=== PATIENT | female | born 1940 | race Caucasian/White ===

== ENCOUNTER 2016-10-08 09:36 | Emergency (ER) | payer MEDICARE ==
[2016-10-08 09:57] LABS: ADD MANUAL DIFF? NO
[2016-10-08 09:59] VITALS: BMI 23.4
--- NOTE | 2016-10-08 09:59 | ED PDOC ---
Arrival/HPI - General Chief Complaint: Syncope Time Seen by Provider: 10/08/16 09:57 Historian: Patient - History of Present Illness Narrative History of Present Illness (Text): 10/08/16 09:49 A 76 year old female, whose past medical history includes CAD with stents, diabetes, hypertension, Hyperlipedmia, and TIA, who is brought down to the emergency department for evaluation of a near syncopal episodes. Patient reports this morning upon arriving to [facility] for work she felt fine, but then when getting onto the elevator to go to a [employer] which was called, she began to fell, lightheaded, dizzy and diaphoretic. Patient notes an tech was behind her who helped her sit down. Patient mentions having intermittent upper back pain for some time now. Currently the patient states her mouth is really dry but she denies any chest pain, shortness of breath or any other complaints at this time. She reports that she did not sleep at all last night. States she did eat this morning. Currently states she feels better. Steam Station Supervisor: Dr. Chavez 10/08/16 14:46 Time/Duration: Prior to Arrival Symptom Onset: Sudden Symptom Course: Other Quality: Other Activities at Onset: Rest Context: Work Past Medical History - Provider Review Nursing Documentation Reviewed: Yes - Infectious Disease Hx of Infectious Diseases: None - Tetanus Immunization Tetanus Immunization: Unknown - Cardiac Hx Hypertension: Yes - Pulmonary Hx Respiratory Disorders: (+ppd yrs ago took inh) - Neurological Hx Transient Ischemic Attacks (TIA): Yes - Endocrine/Metabolic Hx Diabetes Mellitus Type 1: Yes - Hematological/Oncological Hx Blood Transfusions: No Hx Blood Transfusion Reaction: No - Musculoskeletal/Rheumatological Hx Musculoskeletal Disorders: No - Gastrointestinal Hx Gastrointestinal Disorders: Yes (chronic constipation) - Genitourinary/Gynecological Hx Genitourinary Disorders: (mammo 3 yrs ago) - Psychiatric Hx Substance Use: No - Surgical History Hx Cardiac Catheterization: Yes Hx Coronary Stent: Yes Hx Tubal Ligation: Yes - Anesthesia Hx Anesthesia Reactions: No Hx Malignant Hyperthermia: No - Suicidal Assessment Feels Threatened In Home Enviroment: No Family/Social History - Physician Review Nursing Documentation Reviewed: Yes Family/Social History: Unknown Family HX Smoking Status: Never Smoked Hx Alcohol Use: No Hx Substance Use: No Hx Substance Use Treatment: No Allergies/Home Meds Allergies/Adverse Reactions: Allergies tetracycline Allergy (Verified 10/08/16 09:46) RASH Home Medications: Home Meds Medication Instructions Recorded Confirmed Aspirin [Ecotrin] 81 mg PO DAILY 03/07/13 10/08/16 Metoprolol Tartrate 12.5 mg PO BID 03/07/13 10/08/16 Polyethylene Glycol 3350 [Miralax] 17 gm PO DAILY 03/04/14 10/08/16 Ticagrelor [Brilinta] 90 mg PO BID 04/01/14 10/08/16 Atorvastatin [Lipitor] 20 mg PO DAILY 09/19/14 10/08/16 Lisinopril [Lisinopril] 2.5 mg PO DAILY 09/19/14 10/08/16 Ranolazine [Ranexa] 90 mg PO BID 10/08/16 10/08/16 Review of Systems - Review of Systems Constitutional: Fatigue. absent: Fevers Eyes: absent: Vision Changes ENT: absent: Rhinorrhea Respiratory: absent: SOB, Wheezing Cardiovascular: absent: Chest Pain, Calf Pain, GEORGE Gastrointestinal: absent: Abdominal Pain, Nausea, Vomiting Genitourinary Female: absent: Dysuria Musculoskeletal: Back Pain (intermittent upper back pain) Skin: absent: Rash Neurological: Dizziness, Other (lightheaded). absent: Headache Endocrine: Diaphoresis Psychiatric: absent: Depression Physical Exam - Physical Exam Narrative Physical Exam (Text): Head: Atraumatic. Normocephalic. Eyes: PERRL. EOMI. Conjunctivae are not pale. ENT: Mucous membranes are moist and intact. Oropharynx is clear and symmetric. Neck: Supple. Full ROM. No JVD. No lymphadenopathy. Cardiovascular: Regular rate. Regular rhythm. Systolic murmur. Pulmonary/Chest: No evidence of respiratory distress. Clear to auscultation bilaterally. No wheezing, rales or rhonchi. Abdominal: Soft and non-distended. There is no tenderness. No rebound, guarding, or rigidity. No organomegaly. Good bowel sounds. Back: No CVA tenderness. Extremities: No edema. No cyanosis. No clubbing. Full range of motion in all extremities. No calf tenderness. Skin: Skin is warm and dry. No petechiae. No purpura. Neurological: Alert, awake, and oriented to person, place, time, and situation. Normal speech. Motor and sensory intact, no meningeal signs. No facial droop. Psychiatric: Good eye contact. Normal interaction, affect, and behavior. Vital Signs Reviewed: Yes Vital Signs Temp Pulse Resp BP Pulse Ox 10/08/16 11:12 62 16 103/54 L 99 10/08/16 09:36 97.5 F L 66 20 119/65 100 Temperature: Afebrile Blood Pressure: Normal Pulse: Regular Respiratory Rate: Normal Appearance: Positive for: Well-Appearing, Non-Toxic, Comfortable Pain Distress: None Mental Status: Positive for: Alert and Oriented X 3 Finger Stick Blood Glucose: 129 Medical Decision Making ED Course and Treatment: 10/08/16 09:49 Impression: A 76 year old female with a near syncopal episode. Differential Diagnosis include but are not limited to: Near syncope vs. electrolyte imbalance vs. ACS Plan: Will obtain EKG, Chest X-ray and lab work and monitor patient with serial exams. Progress Notes: Patient with significant past cardiac history, currently denies chest pain or sob however. On examination she is noted to have no focal neuro deficits. Denies loss of consiousness. With serial exams in ED, not tachycardic or hypotensive. Consulted with Dr. Chavez, her machinist bench, who evaluated patient in the ED. On examination the patient with serial exams remains comfortable with no neurological deficits, no complaints. Two sets of troponin unremarkable. She has follow-up with machinist bench in AM for stress test. She does not wish to be admitted to the hospital for observation, this was discussed with her. She is cv stable and comfortable on re-exam. 10/08/16 10:20 Chest X-ray: Creator : Olaf Velasquez MD COMPARISON: 03/03/2014 FINDINGS: LUNGS: Examination limited due to severely oblique positioning. No infiltrate. PLEURA: No significant pleural effusion identified, no pneumothorax apparent. CARDIOVASCULAR: Normal. OSSEOUS STRUCTURES: No significant abnormalities. VISUALIZED UPPER ABDOMEN: Normal. OTHER FINDINGS: None. IMPRESSION: No active disease. Patient ambulates without dizziness or symptoms in ED on re-evaluation. - Lab Interpretations Lab Results: 10/08/16 09:40 10/08/16 09:40 Lab Results 10/08/16 14:00: Troponin I < 0.01 10/08/16 09:40: WBC 5.9 D, RBC 3.70, Hgb 11.0 L, Hct 33.1 L, MCV 89.5, MCH 29.7 , MCHC 33.2, RDW 14.3, Plt Count 237, MPV 9.5, Gran % 53.6, Lymph % (Auto) 33.4 , [place] % (Auto) 7.1 H, Eos % (Auto) 5.6 H, Baso % (Auto) 0.3, Gran # 3.15, Lymph # 2.0, [place] # 0.4, Eos # 0.3, Baso # 0.02, PT 10.4, INR 0.96, APTT 24.4, Sodium 136, Potassium 3.9, Chloride 103, Carbon Dioxide 24, Anion Gap 13, BUN 14 , Creatinine 0.9, Est GFR ( Amer) > 60, Est GFR (Non-Af Amer) > 60, Random Glucose 102, Calcium 8.8, Total Bilirubin 0.5, AST 20, ALT 18, Alkaline Phosphatase 54, Lactate Dehydrogenase 290 L, Total Creatine Kinase 43, Troponin I < 0.01, Total Protein 6.5, Albumin 3.4, Globulin 3.1, Albumin/Globulin Ratio 1.1 I have reviewed the lab results: Yes - RAD Interpretation Radiology Orders: 10/08/16 09:46 CHEST PORTABLE [RAD] Stat - Medication Orders Current Medication Orders: Sodium Chloride (Sodium Chloride 0.9%) 1,000 mls @ 100 mls/hr IV .Q10H STANISLAW Last Admin: 10/08/16 10:30 Dose: 100 MLS/HR eMAR Start Stop Document 10/08/16 10:30 SRE (Rec: 10/08/16 10:30 SRE [id number]) Intravenous Solution Start Date 10/08/16 Start Time 10:20 - Scribe Statement The provider has reviewed the documentation as recorded by the Jalilibgerman Gupta Provider Scribe Attestation: All medical record entries made by the Jalilibgerman were at my direction and personally dictated by me. I have reviewed the chart and agree that the record accurately reflects my personal performance of the history, physical exam, medical decision making, and the department course for this patient. I have also personally directed, reviewed, and agree with the discharge instructions and disposition. Disposition/Present on Arrival - Present on Arrival Any Indicators Present on Arrival: No History of DVT/PE: No History of Uncontrolled Diabetes: No Urinary Catheter: No History of Decub. Ulcer: No History Surgical Site Infection Following: None - Disposition Have Diagnosis and Disposition been Completed?: Yes Diagnosis: Near syncope Disposition: HOME/ ROUTINE Disposition Time: 14:52 Patient Plan: Discharge Patient Problems: Current Active Problems Problem Status Diagnosed Coronary arteriosclerosis Acute Jaw pain Acute Unstable angina pectoris Acute Diabetes mellitus Chronic Condition: GOOD Discharge Instructions (ExitCare): Near Syncope (ED) Additional Instructions: Follow-up with Dr. Chavez tomorrow as scheduled. Rest. No strenuous activity. Eat and sleep properly. For any headaches, back pain, shoulder pain, chest pain , shortness of breath, abdominal pain, nausea or vomiting, sweats, persistent or return of any symptoms, get rechecked. Continue your current medication. Referrals: Fracnisco Chavez MD [Staff Provider] - Follow up with primary
[2016-10-08 10:09] LABS: BASO # 0.02 K/mm3 (0.0-2.0); BASO % 0.3 % (0.0-3.0); EOS # 0.3 (0.0-0.7); EOS % 5.6 % (1.5-5.0); GRAN # 3.15 (1.4-6.5); GRAN % 53.6 % (50.0-68.0); HEMATOCRIT 33.1 % (36.0-48.0); LYMPH % 33.4 % (22.0-35.0); MEAN CELL VOLUME 89.5 fL (80.0-105.0); MEAN CORPUSCULAR HEMOGLOBIN 29.7 pg (25.0-35.0); MEAN CORPUSCULAR HGB CONC 33.2 g/dl (31.0-37.0); MEAN PLATELET VOLUME 9.5 fl (7.0-11.0); MONO # 0.4 (0.1-0.6); MONO % 7.1 % (1.0-6.0); PLATELET COUNT 237 10^3/uL (120.0-450.0); RED CELL DISTRIBUTION WIDTH 14.3 % (11.5-14.5); WHITE BLOOD COUNT 5.9 10^3/ul (4.5-11.0)
[2016-10-08 10:11] LABS: ALB/GLOB RATIO 1.1 (1.1-1.8); ALKALINE PHOSPHATASE 54 U/L (38-133); ALT/SGPT 18 U/L (7-56); AST/SGOT 20 U/L (15-39); BILIRUBIN,TOTAL 0.5 mg/dL (0.2-1.3); BLOOD UREA NITROGEN 14 mg/dL (7-21); CALCIUM 8.8 mg/dL (8.4-10.5); CARBON DIOXIDE 24 mmol/L (21-33); CHLORIDE 103 mmol/L (98-107); GFR AFRICAN-AMERICAN > 60; GLUCOSE,RANDOM 102 mg/dL (70-110); POTASSIUM 3.9 mmol/L (3.6-5.0); SODIUM 136 mmol/L (132-148); TOTAL PROTEIN 6.5 g/dL (5.8-8.3)
[2016-10-08 10:15] LABS: INR 0.96 (0.93-1.08); PARTIAL THROMBOPLASTIN TIME 24.4 Seconds (23.7-30.8)
[2016-10-08] MEDS ORDERED: Sodium Chloride 0.9% 1,000 ML IV SCH (10:15)
--- NOTE | 2016-10-08 10:17 | RAD ---
HISTORY: syncope COMPARISON: 03/03/2014 FINDINGS: LUNGS: Examination limited due to severely oblique positioning. No infiltrate. PLEURA: No significant pleural effusion identified, no pneumothorax apparent. CARDIOVASCULAR: Normal. OSSEOUS STRUCTURES: No significant abnormalities. VISUALIZED UPPER ABDOMEN: Normal. OTHER FINDINGS: None. IMPRESSION: No active disease.
[2016-10-08 10:24] LABS: TROPONIN I < 0.01 ng/mL
[2016-10-08 15:03] VITALS: BP 124/64; PULSE 67; RESP 18; TEMP 98; O2SAT 98
--- NOTE | 2016-10-08 15:59 | CON ---
DATE: 10/08/2016 REASON FOR CONSULTATION AND FOLLOWUP: Coronary artery disease, status multiple stents, admitted with near syncope. BRIEF CLINICAL HISTORY: This is a 76-year-old female with a past medical history significant for cor onary artery disease status multiple stents, status post PTCA, stent in LAD, ostial on 02/2013. Statu s post repeat catheterization on 07/12/2013, then patient had a cardiac catheterization on 02/23 DICTATION ENDS HERE. Francisco Chavez MD cc: [id number] TT: 10/08/2016 15:07:22 Confirmation # [id number] Dictation # [id number]
--- NOTE | 2016-10-08 16:00 | CON ---
DATE: 10/08/2016 REASON FOR CONSULTATION: Near syncope. 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 The patient recently had a repeat stent done at [facility]. She was scheduled for a stress test tomorrow. Was working in [employer], was running and going for the call ____ she felt dizzy. She thinks that she did not eat that mu ch and the pressure was low, so brought to the Emergency Room. The patient was offered admission str ess test tomorrow, but her is alone and she does not want to stay; prefers to go home. No ch est pain. EKG is benign. The first troponin is negative. PAST MEDICAL HISTORY: Significant for coronary artery disease as mentioned, history of multiple sten ts in the past, diabetes, hypertension, hyperlipidemia, unstable angina. Last catheterization on 08/2013 showed critical left main 80% stenosis, in-stent stenosis RPDA 70-80%, preserved left ventric ular function. Recommendation: Revascularization, preferably open heart surgery, was offered with i ntra____ balloon pump but patient preferred to have high risk angioplasty which was done at [facility] since the patient had been fairly stable with stable angina. Last stress test the patient had on 09/19/2014 showed mild reversible defect showing mild improvement in both perfusion an d function compared to 04/01/2014, ejection fraction 58%. The patient's last echocardiography 2014 showed ejection fraction of 55-60%, trace to mild aortic regurgitation, moderate mitral regurg, moderate tricuspid regurg, RV systolic pressure of 51. REVIEW OF SYSTEMS: As per HPI. CURRENT MEDICATIONS: The patient is taking Brilinta 90 mg daily, Ranexa ____ mg daily, polyethylene glycol 17 grams daily, metoprolol 12.5 mg twice, lisinopril 2.5 mg, atorvastatin 20, aspirin 81 mg. ALLERGIES: TETRACYCLINE. REVIEW OF SYSTEMS: As per HPI. PHYSICAL EXAMINATION: VITAL SIGNS: Temperature afebrile, heart rate 62, blood pressure 103/54. HEENT: PERRLA. Extraocular muscles intact. NECK: Supple. No carotid bruits. No thyromegaly. CHEST: Clear to auscultation. HEART: S1, S2 regular. ABDOMEN: Soft. EXTREMITIES: Clubbing, cyanosis negative. BLOOD WORKUP: WBC 5.____, hemoglobin 11, hematocrit 33.1, platelet count 237. Chemistry shows sodiu m 130, potassium 3.9, chloride 103, carbon dioxide 24, anion gap of 13, BUN 14, creatinine 0.9, tropo jesus 0.01. EKG normal sinus. No acute ST-T changes noted. IMPRESSION: Syncope, no evidence of acute myocardial infarction, history of coronary artery disease; multiple stents, history of left main, history of circumflex stent, history of left anterior descend ing; history of instent restenosis of left main, history of right posterior descending artery stent. RECOMMENDATION: Will repeat another set of troponins. If troponin remains negative, will discharge and schedule a stress test for tomorrow. Discussed with Dr. Thomason. Discussed with the patient. Kayli hall advised the patient to stay overnight, but patient has a who lives by himself and the p atient is very much concerned. The patient was very much concerned about her and wanted to g o, so will repeat second set of troponins. If remains negative, we will discharge. Followup stress test tomorrow. Francisco Chavez MD cc: [id number] TT: 10/08/2016 15:26:50 Confirmation # [id number] Dictation # [id number] mn
--- NOTE | 2016-10-08 18:28 | CARD ---
APPROVED REPORT EKG Measurement Heart [id number] ME [id number] <Conclusion> Sinus bradycardia Otherwise normal ECG
== END 2016-10-08 15:04 | disposition home or self-care (01) ==
LOC: ED 09:36
DX: R55 Syncope and collapse (principal); I25.10 Atherosclerotic heart disease of native coronary artery without angina pectoris; E78.5 Hyperlipidemia, unspecified; I10 Essential (primary) hypertension; E11.9 Type 2 diabetes mellitus without complications
CPT/HCPCS: 71010; 80053; 82550; 83615; 84484; 85025; 85610; 85730; 93005; 99285; J7040